=== PATIENT | male | born 1970 | race Asian ===

== ENCOUNTER 2018-06-15 08:41 | Outpatient (REF) | payer BC, SELFPAY ==
[2018-06-15 12:48] LABS: Hemoglobin A1C 5.5 % (4.5-6.2)
[2018-06-15 12:54] LABS: ALT 83 U/L (12-78); AST 40 U/L (15-37)
== END 2018-06-15 09:01 ==
LOC: NCHCN 08:41
PROVIDERS: PCP Nurse Practitioner Family; Visit Provider Nurse Practitioner Family
DX: E11.9 Type 2 diabetes mellitus without complications (principal); R94.4 Abnormal results of kidney function studies
CPT/HCPCS: 83036; 84450; 84460

== ENCOUNTER 2018-06-17 10:54 | Emergency (ER) | payer BC, SELFPAY ==
[2018-06-17 11:10] VITALS: BP 130/110; PULSE 60; RESP 18; TEMP 36.7; O2SAT 100
--- NOTE | 2018-06-17 13:01 | W.ED.GENAD ---
Discharge Plan Disposition Patient Disposition: HOME Condition: Stable Discharge Details Chief Complaint: Nk/Back Pain Clinical Impression: Lumbar strain Primary Care Provider: Tyesha oDdson ED Provider: Edwina Adame Home Meds and New Rx's Prescriptions: New diazepam 5 mg tablet 5 mg PO TID PRN (Reason: muscle spasm) Qty: 6 RF: 0 Continue acetaminophen [Mapap Extra Strength] 500 MG tablet 1,000 mg PO PRN PRNRF: 0 lisinopril 10 MG tablet 10 mg PO HS RF: 0 psyllium husk [Fiber (psyllium husk)] 0.52 GM capsule 0.52 gm PO HS RF: 0 Discontinued ciprofloxacin HCl 500 MG tablet 500 mg PO Q6H WHILE AWAKE 10 Days Qty: 40 RF: 0 metronidazole 500 MG tablet 500 mg PO Q6H WHILE AWAKE 10 Days Qty: 40 RF: 0 Discharge Instructions Instructions: Low Back Strain (ED) Additional Instructions: Alternate ice and heat to the affected area several times daily. Take Tylenol as needed and directed for pain. Discussed with your primary care doctor and/or detective whether Motrin is safe to take with your history of kidney removal. Take the Valium as needed and directed for pain not relieved with Tylenol or Motrin. Follow-up with your primary care doctor in 1 week for reevaluation. Return immediately to the emergency department any worsening or new concerning symptoms. Discharge Data Discharge Date/Time-TO BE ENTERED AT DEPARTURE: 06/17/18 13:28 Discharge Physician: Edwina Adame Medical Decision Making 47-year-old male presents with lower back pain since yesterday after lifting a couch in the living room. Patient complaining of pain in his midline lower back and extending out to both sides. No cauda equina symptoms. No fever. Last took Motrin 2 hours ago. Blood pressure elevated otherwise vitals within normal limits. Patient appears uncomfortable but nontoxic. He appears stiff and bending forward when walking. Abdomen soft and nontender. No focal deficits. Neurovascularly intact. Back nontender without evidence of trauma or infection. Appears likely consistent with muscle strain. No focal deficits or radicular or neurological symptoms making disc herniation less likely. Patient was offered x-ray but declines. As he just took Motrin prior to arrival, will give a dose of Valium here and prescription for home. Patient has ride home. HPI General Mode of arrival: ambulatory. Date/Time Provider Initiated Documentation: 06/17/18 11:28. Limitations to Documentation: no limitations. Information obtained by: patient. HPI Narrative: Patient is a 47-year-old male presents with lower back pain after lifting a couch in his living room yesterday. Patient is complaining of pain within the midline lower back and extending out paraspinally. Denies radiation of pain to legs, leg pain or weakness, abdominal pain, saddle anesthesia, urinary or fecal incontinence. Patient has been taking ibuprofen and Tylenol for pain without relief. Last dose of Motrin at 9 AM this morning. Patient was given a ride to the ED. Past medical history: Hypertension, hyperlipidemia, diabetes (pt was unsure why he takes metformin) Surgical history: Left nephrectomy due to kidney cancer, appendectomy Social history: Denies tobacco, alcohol, drugs Medications: Lisinopril, metformin Allergies: NKDA PCP: Tyesha Dodson Related Data Home Medications Medication Instructions Recorded Confirmed acetaminophen [Mapap Extra 1,000 mg PO PRN PRN 11/02/14 06/17/18 Strength] lisinopril 10 mg PO HS 04/10/16 06/17/18 psyllium husk [Fiber (psyllium 0.52 gm PO HS 07/29/17 06/17/18 husk)] diazepam 5 mg PO TID PRN #6 tab 06/17/18 Previous Rx's Medication Instructions Recorded diazepam 5 mg PO TID PRN #6 tab 06/17/18 Allergies Allergy/AdvReac Type Severity Reaction Status Date / Time No Known Allergies Allergy Unverified 07/10/17 14:36 General Stated Complaint: Nk/Back Pain MARIAN: 4 Review of Systems Review of Systems All systems reviewed & are unremarkable except as noted in HPI and below Constitutional Reports as per HPI, Denies chills and Denies fever(s) Eyes Denies blurry vision ENT Denies dizziness, Denies sore throat and Denies throat swelling Cardiovascular Denies chest pain and Denies dyspnea Respiratory Denies dyspnea Gastrointestinal Denies abdominal pain, Denies diarrhea and Denies vomiting Genitourinary Denies hematuria and Denies dysuria Musculoskeletal Reports back pain and Denies numbness Integumentary/Breasts Denies lesions and Denies rash Neurologic Denies dizziness and Denies numbness Allergic/Immunologic Denies throat swelling [facility] Medical History Hypertension Kidney malignancy Social History Smoking/Tobacco Use Status: Never Surgical History Appendectomy Nephrectomy Exam Const General: cooperative and healthy appearing Orientation: alert and awake HENMT Head: normal to inspection Ears: hearing grossly normal bilaterally and external ears normal General nose exam: external nose normal Face and sinus: normal facial exam Mouth: oral mucosae normal Eyes General: appearance normal, both eyes and all related structures Eyelids: eyelids normal EOM: EOM intact bilaterally Neck Neck: normal visual inspection Lymphatic: no lymphadenopathy noted Chest Chest: normal inspection of the chest Resp Effort & Inspection: normal respiratory effort and able to speak in complete sentences Auscultation: clear to auscultation bilaterally Cardio Rate: regular rate Rhythm: regular rhythm GI Inspection: normal to inspection Palpation: soft, not firm, no guarding, no hepatosplenomegaly, no masses and nontender Auscultation: normal bowel sounds Back/Spine/Pelvis Thoracic/Lumbar Spine: straight leg raise negative bilaterally, No paraspinal tenderness, thoraco-lumbar spasm, No thoracic spinal tenderness and No lumbar spinal tenderness Skin General skin exam: no rashes or lesions noted Neuro General: alert, awake and oriented x3 Cognition: normal cognition Speech: speech normal Gait: other (Leaning forward while walking, stiff) Motor: muscle tone normal throughout and strength 5/5 throughout Sensory Exam: no sensory deficits noted DTR's: Rt Patellar: 1+, Lt Patellar: 1+, Rt Ankle: 1+ and Lt Ankle: 1+ Plantar Reflexes: Equivocal: bilateral (Negative Babinski bilaterally) Extrem General: normal to inspection, full ROM, normal capillary refill and no edema Other: Bilateral DP/PT pulses intact. Psych Appearance: grossly normal Mental Status: mental status grossly normal Speech and Movement: speech and movement normal Affect: normal affect Thought Process: normal Course Vital Signs Temperature 98.1 F 06/17/18 11:10 Pulse 60 06/17/18 11:10 Respiratory Rate 18 06/17/18 11:10 Blood Pressure 130/110 H 06/17/18 11:10 Pulse Oximetry 100 06/17/18 11:10 Temperature 98.1 F 06/17/18 11:10 Temperature Source Tympanic 06/17/18 11:10 Pulse 60 06/17/18 11:10 Respiratory Rate 18 06/17/18 11:10 Blood Pressure 130/110 H 06/17/18 11:10 Blood Pressure Position Sitting 06/17/18 11:10 Pulse Oximetry 100 06/17/18 11:10 Oxygen Delivery Method Room Air 06/17/18 11:10 Oxygen Flow Rate 0 06/17/18 11:10 Pain Level 10 06/17/18 11:10
--- NOTE | 2018-06-17 13:07 | ED.GENADUL_ITS ---
Discharge Plan Disposition Patient Disposition: HOME Condition: Stable Discharge Details Chief Complaint: Nk/Back Pain Clinical Impression: Lumbar strain Primary Care Provider: Tyesha Dodson ED Provider: Edwina Adame Home Meds and New Rx's Prescriptions: New diazepam 5 mg tablet 5 mg PO TID PRN (Reason: muscle spasm) Qty: 6 RF: 0 Continue acetaminophen [Mapap Extra Strength] 500 MG tablet 1,000 mg PO PRN PRNRF: 0 lisinopril 10 MG tablet 10 mg PO HS RF: 0 psyllium husk [Fiber (psyllium husk)] 0.52 GM capsule 0.52 gm PO HS RF: 0 Discontinued ciprofloxacin HCl 500 MG tablet 500 mg PO Q6H WHILE AWAKE 10 Days Qty: 40 RF: 0 metronidazole 500 MG tablet 500 mg PO Q6H WHILE AWAKE 10 Days Qty: 40 RF: 0 Discharge Instructions Instructions: Low Back Strain (ED) Additional Instructions: Alternate ice and heat to the affected area several times daily. Take Tylenol as needed and directed for pain. Discussed with your primary care doctor and/or loom checker whether Motrin is safe to take with your history of kidney removal. Take the Valium as needed and directed for pain not relieved with Tylenol or Motrin. Follow-up with your primary care doctor in 1 week for reevaluation. Return immediately to the emergency department any worsening or new concerning symptoms. Discharge Data Discharge Date/Time-TO BE ENTERED AT DEPARTURE: 06/17/18 13:28 Discharge Physician: Edwina Adame Medical Decision Making 47-year-old male presents with lower back pain since yesterday after lifting a couch in the living room. Patient complaining of pain in his midline lower back and extending out to both sides. No cauda equina symptoms. No fever. Last took Motrin 2 hours ago. Blood pressure elevated otherwise vitals within normal limits. Patient appears uncomfortable but nontoxic. He appears stiff and bending forward when walking. Abdomen soft and nontender. No focal deficits. Neurovascularly intact. Back nontender without evidence of trauma or infection. Appears likely consistent with muscle strain. No focal deficits or radicular or neurological symptoms making disc herniation less likely. Patient was offered x-ray but declines. As he just took Motrin prior to arrival, will give a dose of Valium here and prescription for home. Patient has ride home. HPI General Mode of arrival: ambulatory . Date/Time Provider Initiated Documentation: 06/17/18 11:28 . Limitations to Documentation: no limitations . Information obtained by: patient . HPI Narrative: Patient is a 47-year-old male presents with lower back pain after lifting a couch in his living room yesterday. Patient is complaining of pain within the midline lower back and extending out paraspinally. Denies radiation of pain to legs, leg pain or weakness, abdominal pain, saddle anesthesia, urinary or fecal incontinence. Patient has been taking ibuprofen and Tylenol for pain without relief. Last dose of Motrin at 9 AM this morning. Patient was given a ride to the ED. Past medical history: Hypertension, hyperlipidemia, diabetes (pt was unsure why he takes metformin) Surgical history: Left nephrectomy due to kidney cancer, appendectomy Social history: Denies tobacco, alcohol, drugs Medications: Lisinopril, metformin Allergies: NKDA PCP: Tyesha Dodson Related Data Home Medications Medication Instructions Recorded Confirmed acetaminophen [Mapap Extra 1,000 mg PO PRN PRN 11/02/14 06/17/18 Strength] lisinopril 10 mg PO HS 04/10/16 06/17/18 psyllium husk [Fiber (psyllium 0.52 gm PO HS 07/29/17 06/17/18 husk)] diazepam 5 mg PO TID PRN #6 tab 06/17/18 Previous Rx's Medication Instructions Recorded diazepam 5 mg PO TID PRN #6 tab 06/17/18 Allergies Allergy/AdvReac Type Severity Reaction Status Date / Time No Known Allergies Allergy Unverified 07/10/17 14:36 General Stated Complaint: Nk/Back Pain MARIAN: 4 Review of Systems Review of Systems All systems reviewed & are unremarkable except as noted in HPI and below Constitutional Reports as per HPI, Denies chills and Denies fever(s) Eyes Denies blurry vision ENT Denies dizziness, Denies sore throat and Denies throat swelling Cardiovascular Denies chest pain and Denies dyspnea Respiratory Denies dyspnea Gastrointestinal Denies abdominal pain, Denies diarrhea and Denies vomiting Genitourinary Denies hematuria and Denies dysuria Musculoskeletal Reports back pain and Denies numbness Integumentary/Breasts Denies lesions and Denies rash Neurologic Denies dizziness and Denies numbness Allergic/Immunologic Denies throat swelling [facility] Medical History Hypertension Kidney malignancy Social History Smoking/Tobacco Use Status: Never Surgical History Appendectomy Nephrectomy Exam Const General: cooperative and healthy appearing Orientation: alert and awake HENMT Head: normal to inspection Ears: hearing grossly normal bilaterally and external ears normal General nose exam: external nose normal Face and sinus: normal facial exam Mouth: oral mucosae normal Eyes General: appearance normal, both eyes and all related structures Eyelids: eyelids normal EOM: EOM intact bilaterally Neck Neck: normal visual inspection Lymphatic: no lymphadenopathy noted Chest Chest: normal inspection of the chest Resp Effort & Inspection: normal respiratory effort and able to speak in complete sentences Auscultation: clear to auscultation bilaterally Cardio Rate: regular rate Rhythm: regular rhythm GI Inspection: normal to inspection Palpation: soft, not firm, no guarding, no hepatosplenomegaly, no masses and nontender Auscultation: normal bowel sounds Back/Spine/Pelvis Thoracic/Lumbar Spine: straight leg raise negative bilaterally, No paraspinal tenderness, thoraco-lumbar spasm, No thoracic spinal tenderness and No lumbar spinal tenderness Skin General skin exam: no rashes or lesions noted Neuro General: alert, awake and oriented x3 Cognition: normal cognition Speech: speech normal Gait: other (Leaning forward while walking, stiff) Motor: muscle tone normal throughout and strength 5/5 throughout Sensory Exam: no sensory deficits noted DTR's: Rt Patellar: 1+, Lt Patellar: 1+, Rt Ankle: 1+ and Lt Ankle: 1+ Plantar Reflexes: Equivocal: bilateral (Negative Babinski bilaterally) Extrem General: normal to inspection, full ROM, normal capillary refill and no edema Other: Bilateral DP/PT pulses intact. Psych Appearance: grossly normal Mental Status: mental status grossly normal Speech and Movement: speech and movement normal Affect: normal affect Thought Process: normal Course Vital Signs Temperature 98.1 F 06/17/18 11:10 Pulse 60 06/17/18 11:10 Respiratory Rate 18 06/17/18 11:10 Blood Pressure 130/110 H 06/17/18 11:10 Pulse Oximetry 100 06/17/18 11:10 Temperature 98.1 F 06/17/18 11:10 Temperature Source Tympanic 06/17/18 11:10 Pulse 60 06/17/18 11:10 Respiratory Rate 18 06/17/18 11:10 Blood Pressure 130/110 H 06/17/18 11:10 Blood Pressure Position Sitting 06/17/18 11:10 Pulse Oximetry 100 06/17/18 11:10 Oxygen Delivery Method Room Air 06/17/18 11:10 Oxygen Flow Rate 0 06/17/18 11:10 Pain Level 10 06/17/18 11:10
[2018-06-17] MEDS: Diazepam 5 MG TAB PO (13:15)
== END 2018-06-17 13:28 | disposition home or self-care (01) ==
PROVIDERS: Emergency Provider Physician Assistant; PCP Nurse Practitioner Family
DX: S39.012A Strain of muscle, fascia and tendon of lower back, initial encounter (principal); X50.0XXA Overexertion from strenuous movement or load, initial encounter; I10 Essential (primary) hypertension
CPT/HCPCS: 99283

== ENCOUNTER 2018-07-07 09:46 | Outpatient (REF) | payer BC, SELFPAY ==
[2018-07-08 12:15] LABS: Hepatitis C Ab w Rflx HCV PCR Negative (NEGAT)
== END 2018-07-07 10:06 ==
LOC: NCHCN 09:46
PROVIDERS: PCP Nurse Practitioner Family; Visit Provider Nurse Practitioner Family
DX: R79.89 Other specified abnormal findings of blood chemistry (principal); Z11.59 Encounter for screening for other viral diseases
CPT/HCPCS: 86803

== ENCOUNTER 2018-09-01 02:19 | Outpatient (CLI) | payer BC, SELFPAY ==
[2018-09-02 15:16] LABS: HBe Antibody Negative (Negative)
[2018-09-02 15:50] LABS: Hepatitis Be Antigen Positive (Negative)
== END 2018-09-01 02:39 ==
PROVIDERS: PCP Nurse Practitioner Family; Visit Provider Nurse Practitioner Adult Health
DX: B18.1 Chronic viral hepatitis B without delta-agent (principal)
CPT/HCPCS: 36415; 87517; 86707; 87350

== ENCOUNTER 2020-01-10 11:20 | Outpatient (REF) | payer BC, SELFPAY ==
[2020-01-10 16:12] LABS: Calculated LDL 76 mg/dL (<100); Cholesterol 135 mg/dL (<200); HDL Cholesterol 48 mg/dL (40-60); Triglyceride 58 mg/dL (<150)
[2020-01-10 16:27] LABS: Hemoglobin A1C 5.6 % (3.8-5.6)
== END 2020-01-10 11:40 ==
LOC: NCHCN 11:20
PROVIDERS: PCP Nurse Practitioner Family; Visit Provider Nurse Practitioner
DX: R73.03 Prediabetes (principal); Z13.220 Encounter for screening for lipoid disorders
CPT/HCPCS: 80061; 83036

== ENCOUNTER 2020-07-10 16:05 | Outpatient (REF) | payer BC, SELFPAY ==
[2020-07-10 19:30] LABS: Abs Immature Grans 0.01 10^3/uL (0.0-0.06); Absolute Basophil Count 0.02 10^3/uL (0.0-0.2); Absolute Lymphocyte Count 1.44 10^3/uL (1.2-3.4); Absolute Monocyte Count 0.59 10^3/uL (0.1-0.8); Absolute Neutrophil Count 2.55 10^3/uL (1.2-6.7); Basophils % 0.4; Eosinophils % 2.1; HCT 34.9 % (40.0-50.0); HGB 11.3 g/dL (13.5-17.5); Immature Grans % 0.2; Lymphocytes % 30.6; MCH 25.3 pg (27.0-33.0); MCHC 32.4 % (32.0-36.0); MCV 78.1 fL (80-95); MPV 11.2 fL (8.0-11.0); Monocytes % 12.5; Neutrophils % 54.2; Nucleated RBC 0 %; Platelet Count 206 10^3/uL (130-400); RBC 4.47 10^6/uL (4.36-5.78); RDW 12.6 % (11.8-14.1); RDW-SD 35.8 fL; Reticulocyte 0.9 % (0.5-2.4); WBC 4.71 10^3/uL (4.4-10.8)
[2020-07-10 20:12] LABS: Hemoglobin A1C 5.9 % (<5.7)
[2020-07-10 20:17] LABS: Anion Gap 5.5 mmol/L (3-11); BUN 18 mg/dL (7-18); CO2 29.5 mmol/L (21.0-32.0); CREATININE 1.25 mg/dL (0.70-1.30); Calcium 9.1 mg/dL (8.5-10.1); Chloride 104 mmol/L (98-107); Glucose 92 mg/dL (74-106); Potassium 4.5 mmol/L (3.5-5.1); Sodium 139 mmol/L (136-145)
[2020-07-11 09:34] LABS: Iron 77 ug/dL (65-175)
[2020-07-11 09:46] LABS: Ferritin 170 ng/mL (26-388)
== END 2020-07-10 16:25 ==
LOC: NCHCN 16:05
PROVIDERS: PCP Nurse Practitioner Family; Visit Provider Physician Assistant
DX: D64.9 Anemia, unspecified (principal)
CPT/HCPCS: 80048; 82728; 83036; 83540; 85025; 85045

== ENCOUNTER 2020-07-17 10:34 | Outpatient (REF) | payer BC, SELFPAY ==
[2020-07-17 19:09] LABS: HCT 36.2 % (40.0-50.0); HGB 11.8 g/dL (13.5-17.5); MCH 25.7 pg (27.0-33.0); MCHC 32.6 % (32.0-36.0); MCV 78.7 fL (80-95); MPV 11.4 fL (8.0-11.0); Platelet Count 203 10^3/uL (130-400); RDW 12.7 % (11.8-14.1); RDW-SD 36.2 fL; WBC 4.52 10^3/uL (4.4-10.8)
[2020-07-17 19:22] LABS: Iron 69 ug/dL (65-175)
[2020-07-17 20:27] LABS: Ferritin 161 ng/mL (26-388)
== END 2020-07-17 10:54 ==
LOC: NCHCN 10:34
PROVIDERS: PCP Nurse Practitioner Family; Visit Provider Physician Assistant
DX: D64.9 Anemia, unspecified (principal)
CPT/HCPCS: 85027; 82728; 83540; 85045

== ENCOUNTER 2021-01-01 01:15 | Outpatient (CLI) | payer BC, SELFPAY ==
--- NOTE | 2021-01-01 09:32 | DI.US_ITS ---
APPROVED REPORT EXAM: Comprehensive 2D, Doppler, and color-flow Echocardiogram Patient Location: Out-Patient [employer] Technician: Sabine Hernandez RDCS (AE) Indications: Family history of cardiomyopathy. Other Information Study Quality: Good Conclusion Left Ventricle : The left ventricle is normal size. The left ventricular systolic function is normal. The left ventricular ejection fraction is within the normal range. There is normal left ventricular wall thickness. There is normal LV segmental wall motion. The left ventricular diastolic function is normal. LVEF is 59%. Right Ventricle : The right ventricle is normal size. The right ventricular systolic function is norm al. The RVSP is 21.5mmHg. Atria : The left atrium size is normal. The right atrium size is normal. Mitral Valve : The mitral valve is normal in structure. Mild mitral regurgitation. No evidence of lizett ral valve stenosis. Great Vessels : The aortic root is normal in size. The ascending aorta is normal in size. Aortic arch is normal in caliber. IVC is normal in size and collapses >50% with inspiration. See remainder of study for further details. Wall motion Left Ventricle The left ventricle is normal size. The left ventricular systolic function is normal. The left ventric ular ejection fraction is within the normal range. There is normal left ventricular wall thickness. T here is normal LV segmental wall motion. The left ventricular diastolic function is normal. There is no ventricular septal defect visualized. LVEF is 59%. Right Ventricle The right ventricle is normal size. The right ventricular systolic function is normal. The RVSP is 21 .5mmHg. Atria The left atrium size is normal. The right atrium size is normal. The interatrial septum is intact wit h no evidence for an atrial septal defect. Aortic Valve The aortic valve is normal in structure. Aortic valve is trileaflet. There is no aortic valvular sten osis. Trace aortic regurgitation. Mitral Valve The mitral valve is normal in structure. No evidence of mitral valve stenosis. Mild mitral regurgitat ion. Tricuspid Valve The tricuspid valve is normal in structure. There is no tricuspid valve stenosis. Trace tricuspid reg urgitation. Pulmonic Valve The pulmonary valve is normal in structure. There is no pulmonic valvular stenosis. There is no pulmo silvana valvular regurgitation. Great Vessels The aortic root is normal in size. The ascending aorta is normal in size. Aortic arch is normal in ca liber. IVC is normal in size and collapses >50% with inspiration. Pericardium There is no pericardial effusion. 2D Dimensions IVSD d PLAX 0.89 cm M: 0.6-1.2 LV Vol A2C d MOD 108.1 mL LVPW d PLAX 0.87 cm M: 0.6 - 1.2 LV Vol A4C d MOD 124.9 mL LVID d PLAX 4.90 cm M: 4.2 - 5.8 LA vol/ BSA A2C s A-L 23.2 mL/m2 LVDs 3.35 cm M: 2.5 - 4.0 LA vol/ BSA A4C s A-L 28.2 mL/m2 Ao Root d 3.09 cm M: 3.1 - 3.7 LA Vol/ BSA Biplane s A-L 26.5 mL/m2 RA Area A4C 10.49 cm2 LA Area A4C s MOD 17.79 cm2 RA Vol/ BSA A4C s A-L 12.1 mL/m2 LA Area A2C s MOD 16.75 cm2 Ao Asc Diam d 3.37 cm M: 2.6 - 3.4 LV EF A4C MOD 58.1 % LV EF Teichholz 58.3 % LV EF A2C MOD 59.0 % LVEF (Araiza's) 58.53 % M: 52 - 72 LV EF Biplane MOD 58.5 % LV Volume 91.74 mL M: 62 - 150 SV 69.83 mL LV Volume Index 49.32 mL/m2 M: 34 - 74 SV Index 37.57 mL/m2 LV Vol Biplane MOD 119.3 mL FS 30.80 % M-Mode TAPSE 2.35 cm (M/F) >1.7 LV Diastology MV E' medial 0.097 (>0.07 m/s) E/A Ratio 1.6 LV E/e MED 8.05 (<14) MV E Vmax 0.78 (0.4-1.3 m/s) MV E' lateral 0.115 (>0.1 m/s) MV A Vmax 0.50 (0.4-1.3 m/s) LV E/e LAT 6.75 (<14) MV E/A Ratio 1.45 MV E/E' medial 8.08 MV E/E' lateral 6.78 Aortic Valve LVOT Area 3.15 cm2 AoV Area Vmax 2.86 cm2 LVOT Vmax 1.06 m/s AoV Area/ BSA (Vmax) 1.54 cm2/m2 LVOT Mean Ross. 0.67 m/s KALEIGH Mean Ross. 2.94 cm2 LVOT Peak Grad 4.5 mmHg KALEIGH Mean Ross. Index 1.58 cm2/m2 LVOT Mean Grad 2.1 mmHg LVOT VTI 0.242 m LVOT Diam s 2.00 cm AoV Vmax 1.17 m/s Velocity Ratio 0.90 AoV Mean Ross. 0.72 m/s AoV Peak Grad 5.4 mmHg LVOT SV 76.07 mL AoV Mean Grad 2.4 mmHg AoV VTI 0.241 m AoV Area VTI 3.15 cm2 AoV Area/ BSA (VTI) 1.69 cm/m2 Mitral Valve MV DT 175 (160-240 msec) MV PHT 51 msec MV Area PHT 4.32 cm2 MV VTI 0.255 m MV VTI Annulus 0.262 m MV Area VTI 3.07 (4.0-6.0 cm2) Pulmonary Valve PV Vmax 0.89 (0.5-1.5 m/s) RVOT Peak Gr. 2.28 mmHg PV Peak Grad 3.2 mmHg RVOT Mean Gr. 1.35 mmHg PV Mean Grad 2.0 mmHg RVOT VTI 0.181 m PV VTI 0.208 m RVOT Vmax 0.75 m/s Tricuspid Valve TR Peak Grad 18.5 mmHg TR Vmax 2.15 m/s RA Pressure 3.00 mmHg RVSP (TR) 21.5 mmHg
== END 2021-01-01 01:35 ==
PROVIDERS: PCP Nurse Practitioner Family; Visit Provider Internal Medicine Cardiovascular Disease
DX: Z82.49 Family history of ischemic heart disease and other diseases of the circulatory system (principal); I34.0 Nonrheumatic mitral (valve) insufficiency
CPT/HCPCS: 93306

== ENCOUNTER 2021-04-24 02:07 | Outpatient (CLI) | payer BC, SELFPAY ==
[2021-04-24 08:19] LABS: Abs Immature Grans 0.01 10^3/uL (0.0-0.06); Absolute Basophil Count 0.03 10^3/uL (0.0-0.2); Absolute Eosinophil Count 0.22 10^3/uL (0.0-0.7); Absolute Lymphocyte Count 1.51 10^3/uL (1.2-3.4); Absolute Monocyte Count 0.59 10^3/uL (0.1-0.8); Absolute Neutrophil Count 2.63 10^3/uL (1.2-6.7); Basophils % 0.6; Eosinophils % 4.4; HCT 35.2 % (40.0-50.0); HGB 11.4 g/dL (13.5-17.5); Immature Grans % 0.2; Lymphocytes % 30.3; MCH 25.9 pg (27.0-33.0); MCHC 32.4 % (32.0-36.0); MPV 10.6 fL (8.0-11.0); Monocytes % 11.8; Neutrophils % 52.7; Nucleated RBC 0 %; Platelet Count 203 10^3/uL (130-400); RDW 12.6 % (11.8-14.1); RDW-SD 36.9 fL; WBC 4.99 10^3/uL (4.4-10.8)
[2021-04-24 08:29] LABS: Hemoglobin A1C 5.8 % (<5.7)
[2021-04-24 08:56] LABS: ALT 36 U/L (16-63); AST 25 U/L (15-37); Alkaline Phosphatase 81 U/L (46-116); Anion Gap 7.6 mmol/L (3-11); BUN 21 mg/dL (7-18); Bilirubin, Total 0.4 mg/dL (0.2-1.0); CO2 28.4 mmol/L (21.0-32.0); CREATININE 1.3 mg/dL (0.70-1.30); Calcium 8.8 mg/dL (8.5-10.1); Chloride 104 mmol/L (98-107); Estimated GFR 58.43 (mL/min/1.73m2); Glucose 80 mg/dL (74-106); Sodium 140 mmol/L (136-145); Total Protein 7.1 g/dL (6.4-8.2)
[2021-04-27 17:05] LABS: HBV DNA Detect/Quant, PCR 1540 IU/mL (Undetected)
== END 2021-04-24 02:08 | disposition home or self-care (01) ==
LOC: LBO 02:08
PROVIDERS: PCP Nurse Practitioner; Visit Provider Nurse Practitioner Adult Health
DX: B18.1 Chronic viral hepatitis B without delta-agent (principal)
CPT/HCPCS: 36415; 80053; 87517; 83036; 85025

== ENCOUNTER 2021-06-29 02:59 | Outpatient (CLI) | payer BC, SELFPAY ==
[2021-06-29 11:10] LABS: Reticulocyte 0.9 % (0.5-2.4)
[2021-06-29 12:31] LABS: Iron 99 ug/dL (65-175); Total Iron Binding Capacity 301 ug/dL (250-450); Transferrin Sat 33 % (20-55)
[2021-06-29 12:42] LABS: LDH 165 U/L (85-227)
[2021-06-29 13:22] LABS: Ferritin 141 ng/mL (26-388); Folate 10.8 ng/mL (8.6-20.0); Vitamin B12 535 pg/mL (193-986)
[2021-07-02 08:55] LABS: Haptoglobin 92 mg/dL (32-197)
[2021-07-02 14:43] LABS: Hemoglobinopathy Interpretat (See Note); Other Hemoglobin 26.3 % (Absent)
== END 2021-06-29 03:00 | disposition home or self-care (01) ==
LOC: LBO 02:59
PROVIDERS: PCP Nurse Practitioner; Visit Provider Internal Medicine Medical Oncology
DX: D50.9 Iron deficiency anemia, unspecified (principal); R63.4 Abnormal weight loss
CPT/HCPCS: 36415; 82607; 82728; 82746; 83010; 83020; 83540; 83550; 83615; 84443; 85045

== ENCOUNTER 2021-11-09 02:27 | Outpatient (CLI) | payer BC, SELFPAY ==
[2021-11-09 16:59] LABS: Abs Immature Grans 0.01 10^3/uL (0.0-0.06); Absolute Basophil Count 0.05 10^3/uL (0.0-0.2); Absolute Eosinophil Count 0.34 10^3/uL (0.0-0.7); Absolute Lymphocyte Count 1.62 10^3/uL (1.2-3.4); Absolute Monocyte Count 0.51 10^3/uL (0.1-0.8); Eosinophils % 6.9; HCT 36.4 % (40.0-50.0); HGB 11.9 g/dL (13.5-17.5); Immature Grans % 0.2; Lymphocytes % 32.9; MCH 25.4 pg (27.0-33.0); MCHC 32.7 % (32.0-36.0); MCV 77.8 fL (80-95); MPV 10.4 fL (8.0-11.0); Monocytes % 10.3; Neutrophils % 48.7; Nucleated RBC 0 %; Platelet Count 203 10^3/uL (130-400); RBC 4.68 10^6/uL (4.36-5.78); RDW 12.5 % (11.8-14.1); RDW-SD 35.4 fL; WBC 4.93 10^3/uL (4.4-10.8)
[2021-11-09 17:40] LABS: ALT 41 U/L (16-63); AST 32 U/L (15-37); Albumin 4.2 g/dL (3.4-5.0); Alkaline Phosphatase 86 U/L (46-116); Anion Gap 9.9 mmol/L (3-11); BUN 26 mg/dL (7-18); Bilirubin, Total 0.4 mg/dL (0.2-1.0); CO2 25.1 mmol/L (21.0-32.0); CREATININE 1.2 mg/dL (0.70-1.30); Calcium 8.8 mg/dL (8.5-10.1); Chloride 102 mmol/L (98-107); Glucose 90 mg/dL (74-106); Potassium 4.5 mmol/L (3.5-5.1); Sodium 137 mmol/L (136-145); Total Protein 7.6 g/dL (6.4-8.2)
[2021-11-13 19:47] LABS: HBV DNA Detect/Quant, PCR 676 IU/mL (Undetected)
== END 2021-11-09 02:28 | disposition home or self-care (01) ==
PROVIDERS: PCP Nurse Practitioner; Visit Provider Nurse Practitioner Adult Health
DX: B18.1 Chronic viral hepatitis B without delta-agent (principal)
CPT/HCPCS: 36415; 80053; 87517; 83036; 85025

== ENCOUNTER 2022-04-30 01:43 | Outpatient (CLI) | payer BC, SELFPAY ==
[2022-04-30 16:39] LABS: ALT 31 U/L (16-63); AST 29 U/L (15-37); Albumin 3.9 g/dL (3.4-5.0); Alkaline Phosphatase 84 U/L (46-116); BUN 28 mg/dL (7-18); Bilirubin, Total 0.2 mg/dL (0.2-1.0); CREATININE 1.2 mg/dL (0.70-1.30); Calcium 9.2 mg/dL (8.5-10.1); Chloride 103 mmol/L (98-107); Estimated GFR 73.22 (mL/min/1.73m2); Glucose 94 mg/dL (74-106); Potassium 4.1 mmol/L (3.5-5.1); Sodium 138 mmol/L (136-145); Total Protein 7.6 g/dL (6.4-8.2)
[2022-05-02 22:00] LABS: HBV DNA Detect/Quant, PCR 643 IU/mL (Undetected)
== END 2022-04-30 01:44 | disposition home or self-care (01) ==
LOC: LBO 01:43
PROVIDERS: PCP Nurse Practitioner; Visit Provider Nurse Practitioner Adult Health
DX: B18.1 Chronic viral hepatitis B without delta-agent (principal)
CPT/HCPCS: 36415; 80053; 87517

== ENCOUNTER 2022-11-20 13:18 | Outpatient (REF) | payer BC, SELFPAY ==
[2022-11-20 12:48] LABS: Absolute Basophil Count 0.02 10^3/uL (0.0-0.2); Absolute Eosinophil Count 0.11 10^3/uL (0.0-0.7); Absolute Lymphocyte Count 1.49 10^3/uL (1.2-3.4); Absolute Monocyte Count 0.45 10^3/uL (0.1-0.8); Absolute Neutrophil Count 2.37 10^3/uL (1.2-6.7); Basophils % 0.5; Eosinophils % 2.5; HCT 35.4 % (40.0-50.0); HGB 12.1 g/dL (13.5-17.5); Lymphocytes % 33.6; MCH 26.5 pg (27.0-33.0); MCHC 34.2 % (32.0-36.0); MCV 78 fL (80-95); MPV 10.9 fL (8.0-11.0); Monocytes % 10.1; Neutrophils % 53.3; Platelet Count 224 10^3/uL (130-400); RBC 4.56 10^6/uL (4.36-5.78); RDW 12.6 % (11.8-14.1); RDW-SD 35.3 fL; WBC 4.44 10^3/uL (4.4-10.8)
[2022-11-20 13:31] LABS: ALT 39 U/L (16-63); AST 28 U/L (15-37); Albumin 4.1 g/dL (3.4-5.0); Alkaline Phosphatase 73 U/L (46-116); Anion Gap 6.6 mmol/L (3-11); BUN 25 mg/dL (7-18); Bilirubin, Total 0.5 mg/dL (0.2-1.0); CO2 29.4 mmol/L (21.0-32.0); CREATININE 1.1 mg/dL (0.70-1.30); Calculated LDL 94 mg/dL (<100); Chloride 104 mmol/L (98-107); Cholesterol 156 mg/dL (<200); Estimated GFR 80.77 (mL/min/1.73m2); Glucose 106 mg/dL (74-106); HDL Cholesterol 56 mg/dL (40-60); Iron 111 ug/dL (65-175); Potassium 4.5 mmol/L (3.5-5.1); Sodium 140 mmol/L (136-145); TSH (W/Ref FT4) 0.43 uIU/mL (0.36-3.74); Total Protein 7.4 g/dL (6.4-8.2); Triglyceride 31 mg/dL (<150)
[2022-11-20 14:18] LABS: Hemoglobin A1C 6.3 % (<5.7)
== END 2022-11-20 13:19 | disposition home or self-care (01) ==
LOC: NCHCN 13:18
PROVIDERS: PCP Nurse Practitioner; Visit Provider Nurse Practitioner Family
DX: R63.4 Abnormal weight loss (principal); R73.03 Prediabetes; I10 Essential (primary) hypertension; D64.9 Anemia, unspecified; K73.2 Chronic active hepatitis, not elsewhere classified; Z13.220 Encounter for screening for lipoid disorders
CPT/HCPCS: 80053; 80061; 83036; 83540; 84443; 85025

== ENCOUNTER 2023-02-13 02:30 | Outpatient (CLI) | payer BC, SELFPAY ==
--- NOTE | 2023-02-13 07:43 | DI.RAD_ITS ---
Exam(s) XR SACRUM COCCYX XR LUMBAR SPINE COMPLETE EXAM: XR LUMBAR SPINE COMPLETE CLINICAL HISTORY: LUMBAR BACK PAIN, M54.50, HAVING PT,. TECHNIQUE: 2D digital imaging was performed. Five views spine, three views of sacrum and coccyx.. COMPARISON: CR XR SACRUM COCCYX from 02/13/2023 FINDINGS: BONES: No fracture or destructive lesion. Vertebral body heights are maintained. Minimal endplate os teophytes. No facet hypertrophy identified. DISKS: Intervertebral disc spaces are maintained. ALIGNMENT: Lumbar spinal alignment is within normal limits. SI joints and pubic symphysis are unremar kable. SOFT TISSUE: Normal. IMPRESSION: Minimal degenerative changes. DATA REPOSITORY: RADIATION DOSE DELIVERED:
== END 2023-02-13 02:50 ==
LOC: DI 02:30
PROVIDERS: PCP Nurse Practitioner Family; Visit Provider Nurse Practitioner Family
DX: M54.50 Low back pain, unspecified (principal)
CPT/HCPCS: 72110; 72220

== ENCOUNTER 2023-08-29 13:55 | Outpatient (CLI) | payer BC, SELFPAY ==
[2023-08-29 14:24] LABS: ALT 32 U/L (16-63); AST 24 U/L (15-37); Albumin 4.1 g/dL (3.4-5.0); Alkaline Phosphatase 81 U/L (46-116); Anion Gap 7.1 mmol/L (3-11); BUN 18 mg/dL (7-18); Bilirubin, Total 0.5 mg/dL (0.2-1.0); CO2 29.9 mmol/L (21.0-32.0); CREATININE 1.1 mg/dL (0.70-1.30); Calcium 9.7 mg/dL (8.5-10.1); Chloride 102 mmol/L (98-107); Estimated GFR 80.27 (mL/min/1.73m2); Glucose 98 mg/dL (74-106); Potassium 4.3 mmol/L (3.5-5.1); Sodium 139 mmol/L (136-145); Total Protein 8.1 g/dL (6.4-8.2)
[2023-09-01 15:20] LABS: Hepatitis B Surface Ag Positive (Negative)
[2023-09-02 18:03] LABS: HBV DNA Detect/Quant, PCR 124 IU/mL (Undetected)
== END 2023-08-29 13:56 | disposition home or self-care (01) ==
LOC: LBO 13:55
PROVIDERS: PCP Nurse Practitioner Family; Visit Provider Nurse Practitioner Adult Health
DX: B18.1 Chronic viral hepatitis B without delta-agent (principal)
CPT/HCPCS: 36415; 80053; 87340; 87517

== ENCOUNTER 2023-11-25 16:08 | Outpatient (REF) | payer BC, SELFPAY ==
[2023-11-25 19:35] LABS: COMMENT (LAB VIEW ONLY) 111.34 mg/dL
== END 2023-11-25 16:09 | disposition home or self-care (01) ==
LOC: NCHCN 16:08
PROVIDERS: PCP Nurse Practitioner Family; Visit Provider Nurse Practitioner Family
DX: I10 Essential (primary) hypertension (principal)
CPT/HCPCS: 82043; 82570

== ENCOUNTER 2024-12-06 13:03 | Outpatient (REF) | payer BC, SELFPAY ==
[2024-12-06 15:44] LABS: HCT 34.7 % (40.0-50.0); HGB 11.7 g/dL (13.5-17.5); MCH 26.4 pg (27.0-33.0); MCHC 33.7 % (32.0-36.0); MCV 78 fL (80-95); MPV 11.1 fL (8.0-11.0); Platelet Count 226 10^3/uL (130-400); RBC 4.43 10^6/uL (4.36-5.78); RDW 13.2 % (11.8-14.1); RDW-SD 37.5 fL; WBC 4.44 10^3/uL (4.4-10.8)
[2024-12-06 16:13] LABS: ALT 29 U/L (16-63); AST 25 U/L (15-37); Albumin 3.8 g/dL (3.4-5.0); Alkaline Phosphatase 70 U/L (46-116); Anion Gap 11.8 mmol/L (3-11); BUN 17 mg/dL (7-18); Bilirubin, Total 0.5 mg/dL (0.2-1.0); CO2 25.2 mmol/L (21.0-32.0); Calcium 9.1 mg/dL (8.5-10.1); Calculated LDL 65 mg/dL (<100); Chloride 107 mmol/L (98-107); Cholesterol 142 mg/dL (<200); Estimated GFR 89.44 (mL/min/1.73m2); Glucose 154 mg/dL (74-106); HDL Cholesterol 63 mg/dL (>or=40); Potassium 4.1 mmol/L (3.5-5.1); Sodium 144 mmol/L (136-145); Total Protein 7.3 g/dL (6.4-8.2); Triglyceride 74 mg/dL (<150)
[2024-12-06 16:14] LABS: Hemoglobin A1C 6.1 % (<5.7)
== END 2024-12-06 13:04 | disposition home or self-care (01) ==
LOC: NCHCN 13:03
PROVIDERS: PCP Nurse Practitioner Family; Visit Provider Nurse Practitioner Family
DX: Z00.00 Encounter for general adult medical examination without abnormal findings (principal)
CPT/HCPCS: 80053; 80061; 85027; 83036